=== PATIENT | male | born 1955 | race Caucasian/White ===

== ENCOUNTER 2020-10-15 14:14 | Inpatient (IN) ==
[2020-10-18] MEDS: *HR* Rivaroxaban 10 MG TABLET PO SCH (17:35)
[2020-10-18] MEDS: carvediloL 25 MG TABLET PO SCH (17:35)
[2020-10-18] MEDS ORDERED: Melatonin 3 MG TABLET PO PRN (17:39)
[2020-10-18] MEDS: *HR* Metformin 500 MG TABLET PO SCH (21:34)
[2020-10-18] MEDS: NIFEdipine XL (24 HR) 60 MG TAB.ER.24 PO SCH ×2 (21:34→22:31)
[2020-10-18] MEDS: *HR* Glimepiride 4 MG TABLET PO SCH (21:34)
[2020-10-18] MEDS: NIFEdipine XL (24 HR) 30 MG TAB.ER.24 PO SCH (21:37)
[2020-10-19 05:19] LABS: Basophils # 0.1 K/mcL (0.0-0.2); Basophils % 0.9 %; Eosinophils # 0.2 K/mcL (0.0-0.6); Eosinophils % 4.1 %; Hematocrit 38.8 % (37.5-50.1); Hemoglobin 13.3 g/dL (12.9-16.9); Immature Granulocytes % 0.2 % (0-4); Lymphocytes % 18.3 %; Mean Corpuscular HGB Conc 34.3 g/dL (31.6-35.5); Mean Corpuscular Volume 93.5 fL (83.0-100.0); Mean Platelet Volume 11.4 fL (9.4-12.4); Monocytes # 0.6 K/mcL (0.0-1.3); Monocytes % 11.4 %; Neutrophils # 3.7 K/mcL (1.6-8.9); Platelet Count 165 K/mcL (140-400); Red Blood Count 4.15 M/mcL (4.19-5.50); Red Cell Distribution Width 13.1 % (11.5-14.5); Segmented Neutrophils % 65.1 %; White Blood Count 5.6 K/mcL (4.3-11.1)
[2020-10-19 05:25] LABS: Calcium 8.6 mg/dL (8.6-10.3); Potassium 4.2 mEq/L (3.5-5.1)
[2020-10-19] MEDS: carvediloL 25 MG TABLET PO SCH ×2 (08:13→17:12)
[2020-10-19] MEDS: lisinopriL 20 MG TABLET PO SCH (08:13)
[2020-10-19] MEDS: *HR* Metformin 500 MG TABLET PO SCH ×2 (08:13→20:01)
[2020-10-19] MEDS: NIFEdipine XL (24 HR) 30 MG TAB.ER.24 PO SCH ×2 (08:13→20:02)
[2020-10-19] MEDS: *HR* Glimepiride 4 MG TABLET PO SCH ×2 (08:14→20:02)
[2020-10-19] MEDS: (Saxagliptin Hcl [Onglyza] 5 MG) PO SCH (08:17)
[2020-10-19] MEDS: *HR* Rivaroxaban 10 MG TABLET PO SCH (17:12)
[2020-10-20] MEDS: lisinopriL 20 MG TABLET PO SCH (07:54)
[2020-10-20] MEDS: NIFEdipine XL (24 HR) 30 MG TAB.ER.24 PO SCH (07:54)
[2020-10-20] MEDS: *HR* Metformin 500 MG TABLET PO SCH (07:54)
[2020-10-20] MEDS: (Saxagliptin Hcl [Onglyza] 5 MG) PO SCH (07:55)
[2020-10-20] MEDS: carvediloL 25 MG TABLET PO SCH ×2 (07:55→17:19)
[2020-10-20] MEDS ORDERED: amLODIPine 5 MG TABLET PO SCH (09:00)
[2020-10-20] MEDS ORDERED: cloNIDine HCL 0.1 MG TABLET PO PRN (13:23)
[2020-10-20] MEDS: *HR* Glimepiride 4 MG TABLET PO SCH (15:07)
[2020-10-20] MEDS: *HR* Rivaroxaban 10 MG TABLET PO SCH (17:19)
[2020-10-20 20:32] VITALS: BP 148/71
[2020-10-20] MEDS ORDERED: NIFEdipine XL (24 HR) 30 MG TAB.ER.24 PO SCH (21:00)
== END 2020-10-20 20:48 | disposition left against medical advice (07) | DRG 57 ==
LOC: INPGRE 10-18 11:46
PROVIDERS: ADMIT Family Medicine; ATTEND Family Medicine